=== PATIENT | male | born 1960 | race Caucasian/White ===

== ENCOUNTER → 2025-02-03 14:13 | Outpatient (REF) | payer OTHER, SELFPAY | LOC: RAD 14:13 | PROVIDERS: ATTENDING PHYSICIAN Physician Assistant Medical | DX: I65.22 Occlusion and stenosis of left carotid artery (principal); R93.89 Abnormal findings on diagnostic imaging of other specified body structures; E78.2 Mixed hyperlipidemia | CPT/HCPCS: 93880 ==